=== PATIENT | female | born 1960 | race Caucasian/White ===

== ENCOUNTER → 2022-04-02 | Outpatient (CLI) | payer BC ==
[2022-04-02 15:14] LABS: Chol/HDL Ratio 2.65 Ratio; LDL Cholesterol,Calculated 82.2 mg/dL (0.0-131.0)
[2022-04-02 15:29] LABS: Basophils # (A) 0.11 X 10*3/uL (0.00-0.10); Basophils % (A) 1.7 %; Eosinophils # (A) 0.84 X 10*3/uL (0.04-0.35); Eosinophils % (A) 12.7 %; HCT 45.6 % (37.2-46.3); Immature Grans, Automated 0.5 %; Lymphocytes # (A) 1.68 X 10*3/uL (0.90-5.00); Lymphocytes % (A) 25.5 %; MCH 31.3 pg (27.0-32.0); MCHC 32.9 g/dL (32.0-37.0); MCV 95.2 fL (80.0-97.0); Mean Platelet Volume 11.2 fL (9.5-12.2); Monocytes # (A) 0.53 X 10*3/uL (0.20-1.00); NRBC Per 100 WBC 0 /100 WBCS (0.0-0.0); Neutrophils # (A) 3.41 X 10*3/uL (1.80-7.70); Neutrophils % (A) 51.6 %; Platelet Count 280 X 10*3/uL (140-440); RBC 4.79 X 10*6/uL (4.10-5.20); RDW 12.3 % (11.5-14.5)
[2022-04-02 16:16] LABS: Erythrocyte Sedimentation Rate 8 mm/Hr (0-30)
[2022-04-02 18:15] LABS: ALT 45 U/L (8-44); AST 38 U/L (13-35); African American GFR (CKD) 84.2 (60.0-200.0); Albumin 4.3 g/dL (3.8-4.9); Albumin/Globulin Ratio 1.54 (1.60-3.17); Alkaline Phosphatase 68 U/L (41-126); BUN/Creat Ratio 12.15 Ratio (12.00-20.00); Blood Urea Nitrogen 10.3 mg/dL (9.0-27.0); C Reactive Protein <0.30 mg/dL (0.00-0.80); Calcium 9.2 mg/dL (8.7-10.3); Carbon Dioxide 22.7 mmol/L (20.0-27.5); Chloride 103 mmol/L (96-109); Creatine Kinase 57 U/L (26-186); Globulin 2.8 g/dL (1.6-3.3); Glucose 81 mg/dL (70-110); Magnesium 2.1 mg/dL (1.5-2.4); Non-African American GFR(CKD) 72.6 (60.0-200.0); Phosphorus 3.8 mg/dL (2.4-5.1); Potassium 4.4 mmol/L (3.5-5.5); Sodium 139 mmol/L (135-145); Total Protein 7.1 g/dL (6.2-8.2)
== END | disposition home or self-care (01) ==
LOC: LABWHC1 10:25
PROVIDERS: ATTEND Internal Medicine
DX: Z00.00 Encounter for general adult medical examination without abnormal findings (principal); E55.9 Vitamin D deficiency, unspecified; D64.9 Anemia, unspecified; I10 Essential (primary) hypertension; E87.8 Other disorders of electrolyte and fluid balance, not elsewhere classified; E78.5 Hyperlipidemia, unspecified
CPT/HCPCS: 36415; 80053; 80061; 82306; 82550; 83735; 84100; 84443; 85025; 85652; 86140

== ENCOUNTER → 2023-05-26 | Outpatient (CLI) | payer MEDICARE ==
[2023-05-26 18:40] LABS: Basophils # (A) 0.09 X 10*3/uL (0.00-0.10); Basophils % (A) 1.2 %; Eosinophils # (A) 0.58 X 10*3/uL (0.04-0.35); Eosinophils % (A) 7.5 %; HCT 43.4 % (37.2-46.3); HGB 14.4 g/dL (12.0-15.0); Lymphocytes # (A) 1.78 X 10*3/uL (0.90-5.00); MCH 30.5 pg (27.0-32.0); MCHC 33.2 g/dL (32.0-37.0); MCV 91.9 FL (80.0-97.0); Mean Platelet Volume 11.2 FL (9.5-12.2); Monocytes # (A) 0.66 X 10*3/uL (0.20-1.00); Monocytes % (A) 8.5 %; NRBC Per 100 WBC 0 X 10*3/uL (0.00-0.01); Neutrophils # (A) 4.61 X 10*3/uL (1.80-7.70); Neutrophils % (A) 59.5 %; Platelet Count 301 X 10*3/uL (140-440); RBC 4.72 X 10*6/uL (4.10-5.20); RDW 11.9 % (11.5-14.5); WBC 7.74 X 10*3/uL (4.50-10.00)
[2023-05-26 18:46] LABS: Appearance,Urine Clear (Clear); Bilirubin,Urine Negative (Negative); Blood,Urine Negative (Negative); Color,Urine Yellow (Yellow); Ketones,Urine Negative (Negative); Nitrite,Urine Negative (Negative); Specific Gravity,Urine 1.009 (1.001-1.030); Urobilinogen,Urine 0.2 E.U./DL
[2023-05-26 19:06] LABS: Bacteria,Urine Trace
[2023-05-26 19:16] LABS: ALT 25 U/L (8-44); AST 25 U/L (13-35); Albumin 4.5 g/dL (3.8-4.9); Albumin/Globulin Ratio 1.73 Ratio (1.60-3.17); Alkaline Phosphatase 77 U/L (41-126); BUN/Creat Ratio 12.22 Ratio (12.00-20.00); C Reactive Protein <0.30 mg/dL (0.00-0.80); Calcium 9.9 mg/dL (8.7-10.3); Carbon Dioxide 26.6 mmol/L (21.6-31.8); Chloride 100 mmol/L (96-109); Chol/HDL Ratio 2.62 Ratio; Creatine Kinase 58 U/L (26-186); Globulin 2.6 g/dL (1.6-3.3); Glucose 90 mg/dL (70-110); LDL Cholesterol,Calculated 82.9 mg/dL (0.0-131.0); Magnesium 2.1 mg/dL (1.5-2.4); Phosphorus 3.1 mg/dL (2.4-5.1); Potassium 4.6 mmol/L (3.5-5.5); Sodium 138 mmol/L (135-145); Total Bilirubin 0.5 mg/dL (0.3-1.2); Total Protein 7.1 g/dL (6.2-8.2); Uric Acid 3.6 mg/dL (2.9-7.7); VLDL Calculation 14.16 mg/dL (5.00-40.00)
[2023-05-26 19:33] LABS: Erythrocyte Sedimentation Rate 7 mm/Hr (0-30)
== END | disposition home or self-care (01) ==
LOC: LABWHC1 11:35
PROVIDERS: ATTEND Internal Medicine
DX: I10 Essential (primary) hypertension (principal); E55.9 Vitamin D deficiency, unspecified; E78.5 Hyperlipidemia, unspecified; N39.0 Urinary tract infection, site not specified; D64.9 Anemia, unspecified
CPT/HCPCS: 36415; 80053; 80061; 81001; 82306; 82550; 83735; 84100; 84443; 84550; 85025; 85652; 86140

== ENCOUNTER → 2023-06-11 | Outpatient (CLI) | payer MEDICARE ==
[2023-06-11 14:26] LABS: African American GFR (CKD) >90 (>60 ml/min/1.73 sqM); Blood Urea Nitrogen 17 mg/dL (7-17); Non-African American GFR(CKD) 81 (>60 ml/min/1.73 sqM)
--- NOTE | 2023-06-11 15:54 | CT ---
EXAMINATION TYPE: CT chest w con DATE OF EXAM: 06/11/2023 COMPARISON: None available. HISTORY: Abnormal EKG. CT DLP: 417 mGycm Automated exposure control for dose reduction was used. TECHNIQUE: CT scan of the chest is performed with IV Contrast, patient injected with 100 mL of Isovue 300. MIP Images are created on CT scanner and reviewed. 3D reconstructed images are created on an independent workstation and reviewed. FINDINGS: Mediastinum and Leonora: There is no axillary, mediastinal or hilar lymphadenopathy. Pleural and Pericardial spaces: There are no pleural or pericardial effusions. Upper Abdomen: Subcentimeter hypodensities in the left lobe of liver too small fully characterize. Th ere is a small sliding hiatal hernia. The visualized upper abdomen otherwise appears unremarkable. Cardiovascular: The thoracic aorta is normal in size without evidence of aneurysm or dissection. Pulmonary Artery: There are no central pulmonary arterial abnormalities. The examination was not per formed to evaluate for pulmonary embolism. Lung Parenchyma and Airways: There are couple calcified granulomas seen within the right lung. The meño ngs otherwise appear clear. Bones: No fracture or aggressive osseous lesion. IMPRESSION: 1. No acute abnormality in the chest. 2. Small hiatal hernia.
--- NOTE | 2023-06-12 10:56 | CA ---
Transthoracic Echo Report Name: Romina Horton Age: 63 Gender: F : 1960 Exam Date: 06/11/2023 15:12 Exam Location: [facility] Ht (in): 64 Wt (lb): 160 Ordering Physician: Lake Blanco MD Attending/Referring Phys: Lake Blanco MD Pit Recorder Jena Ladd RDCS Procedure CPT: Indications: R94.31 ABNORMAL ELECTROCARDIOGRAM [ECG] [EK I25.10 Cardiac Hx: Technical Quality: Good Contrast 1: Total Dose (mL): Contrast 2: Total Dose (mL): MEASUREMENTS (Male / Female) Normal Values 2D ECHO LV Diastolic Diameter PLAX 4.8 cm 4.2 - 5.9 / 3.9 - 5.3 cm LV Systolic Diameter PLAX 3.1 cm IVS Diastolic Thickness 0.9 cm 0.6 - 1.0 / 0.6 - 0.9 cm LVPW Diastolic Thickness 0.9 cm 0.6 - 1.0 / 0.6 - 0.9 cm LV Relative Wall Thickness 0.4 RV Internal Dim ED PLAX 2.9 cm LVOT Diameter 2.2 cm Aortic Root Diameter 2.8 cm LV Diastolic Volume MOD 4C 75.9 cm??? LV Systolic Volume MOD 4C 30.4 cm??? LV Ejection Fraction MOD 4C 59.9 % LV Diastolic Length 4C 8.3 cm LV Systolic Length 4C 6.7 cm LV Diastolic Volume MOD 2C 84.5 cm??? LV Systolic Volume MOD 2C 33.2 cm??? LV Ejection Fraction MOD 2C 60.8 % LV Diastolic Length 2C 7.6 cm LV Systolic Length 2C 6.4 cm Ascending Aorta Diameter 3.2 cm DOPPLER LVOT Peak Velocity 112.1 cm/s LVOT Peak Gradient 5.0 mmHg LVOT Velocity Time Integral 20.7 cm LVOT Stroke Volume 77.6 cm??? LVOT Stroke Volume Index 43.6 ml/m??? Mitral E Point Velocity 79.4 cm/s Mitral A Point Velocity 47.6 cm/s Mitral E to A Ratio 1.7 MV Deceleration Time 145.8 ms MV E' Velocity 8.4 cm/s Mitral E to MV E' Ratio 9.4 TR Peak Velocity 195.7 cm/s TR Peak Gradient 15.3 mmHg Right Ventricular Systolic Press 20.4 mmHg PV Peak Velocity 85.3 cm/s PV Peak Gradient 2.9 mmHg FINDINGS Left Ventricle Left ventricular ejection fraction is estimated at 60-65 %. Left ventricular cavity size normal. Left ventricular wall thickness normal. Normal left ventricular wall motion. Right Ventricle Normal right ventricular size. Right ventricular systolic pressure within normal limits. Right Atrium Normal right atrial size. Left Atrium Normal left atrial size. Mitral Valve Structurally normal mitral valve. No mitral stenosis, regurgitation or prolapse. Aortic Valve Trileaflet aortic valve. No aortic valve stenosis or regurgitation. Tricuspid Valve Structurally normal tricuspid valve. Mild tricuspid regurgitation. Pulmonic Valve Structurally normal pulmonic valve. No pulmonic regurgitation. Pericardium No pericardial effusion. Aorta Normal size aortic root and proximal ascending aorta. CONCLUSIONS Left ventricular ejection fraction 60-65% No mitral regurgitation Mild tricuspid regurgitation No pericardial effusion Previewed by: Dr. Irvnig Wiggins DO (Electronically Signed) Final Date: 12 June 2023 10:55
== END | disposition home or self-care (01) ==
LOC: RADCTMAIN 13:34
PROVIDERS: ATTEND Internal Medicine
DX: K44.9 Diaphragmatic hernia without obstruction or gangrene (principal); I36.1 Nonrheumatic tricuspid (valve) insufficiency; I25.10 Atherosclerotic heart disease of native coronary artery without angina pectoris; R94.31 Abnormal electrocardiogram [ECG] [EKG]; R91.1 Solitary pulmonary nodule
CPT/HCPCS: 93306; 82565; 84520; 71260; 36415; Q9967

== ENCOUNTER → 2024-02-04 | Outpatient (CLI) | payer MEDICARE ==
--- NOTE | 2024-02-10 08:28 | MM ---
Reason for Exam: Follow-up at short interval from prior study. Last mammogram was performed 1 year(s) and 1 month(s) ago. Patient History: Menarche at age 11. First Full-Term at age 29. Late child-bearing (after 28). Postmenopausal. Patient has history of breast feeding. 09/09/2008, Cyst Aspiration on the Left side. 09/10/2011, Excisional Biopsy on the Left side. Sister had breast cancer, age 53. Risk Values: Lida 5 year model risk: 3.9%. NCI Lifetime model risk: 14.3%. Prior Study Comparison: 05/05/2018 Bilateral MG 3D screening mammo w/cad, Unknown. 05/13/2019 Bilateral MG 3D screening mammo w/cad, Unknown. 09/28/2020 Bilateral MG 3D screening mammo w/cad, Unknown. 11/23/2021 Bilateral MG 3D screening mammo w/cad, Unknown. 01/09/2023 Bilateral MG 3D screening mammo w/cad, Unknown. 01/20/2023 Bilateral MG 3D screening mammo w/cad, Unknown. Tissue Density: The breasts are heterogeneously dense, which may obscure small masses. Findings: Analyzed By CAD. No evidence for mass or distortion. No suspicious microcalcifications. Overall Assessment: Negative, BI-RAD 1 Management: Screening Mammogram of both breasts in 1 year. . Results were given to the patient verbally at the time of exam. Patient should continue monthly self-breast exams. A clinical breast exam by your physician is recommended on an annual basis. This exam should not preclude additional follow-up of suspicious palpable abnormalities. Note on Lida scores and lifetime risk: 1. A Lida score greater than 3% is considered moderate risk. If this is the case, consider specialist referral to assess eligibility for a risk reducing agent. 2. If overall lifetime risk for the development of breast cancer is 20% or higher, the patient may qualify for future screening with alternating mammogram and breast MRI. [facility], , 02/04/2024 10:23 AM. Electronically signed and approved by: Rodríguez Rogers M.D. Radiologis
== END | disposition home or self-care (01) ==
LOC: RADMAMWWP 09:32
PROVIDERS: ATTEND Internal Medicine
CPT/HCPCS: 77062; 77066

== ENCOUNTER → 2024-05-27 | Outpatient (CLI) | payer MEDICARE ==
[2024-05-27 14:53] LABS: Basophils # (A) 0.08 X 10*3/uL (0.00-0.10); Basophils % (A) 1.2 %; Eosinophils # (A) 0.52 X 10*3/uL (0.04-0.35); Eosinophils % (A) 7.9 %; HCT 42.4 % (37.2-46.3); HGB 14.1 g/dL (12.0-15.0); Lymphocytes # (A) 1.79 X 10*3/uL (0.90-5.00); Lymphocytes % (A) 27.2 %; MCH 30.9 pg (27.0-32.0); MCHC 33.3 g/dL (32.0-37.0); MCV 92.8 FL (80.0-97.0); Mean Platelet Volume 10.8 FL (9.5-12.2); Monocytes # (A) 0.62 X 10*3/uL (0.20-1.00); Monocytes % (A) 9.4 %; NRBC Per 100 WBC 0 X 10*3/uL (0.00-0.01); Neutrophils # (A) 3.54 X 10*3/uL (1.80-7.70); Platelet Count 298 X 10*3/uL (140-440); RBC 4.57 X 10*6/uL (4.10-5.20); RDW 11.9 % (11.5-14.5); WBC 6.57 X 10*3/uL (4.50-10.00)
[2024-05-27 15:16] LABS: Erythrocyte Sedimentation Rate 6 mm/Hr (0-30)
[2024-05-27 19:30] LABS: C Reactive Protein <0.30 mg/dL (0.00-0.80); Chol/HDL Ratio 3.15 Ratio; Creatine Kinase 57 U/L (26-186); LDL Cholesterol,Calculated 108.8 mg/dL (0.0-131.0); VLDL Calculation 17.48 mg/dL (5.00-40.00)
[2024-05-27 19:31] LABS: % Iron Saturation 32.72 (12.00-45.00); ALT 50 U/L (8-44); AST 39 U/L (13-35); Albumin 4.8 g/dL (3.8-4.9); Albumin/Globulin Ratio 1.92 Ratio (1.60-3.17); Alkaline Phosphatase 69 U/L (41-126); BUN/Creat Ratio 16.12 Ratio (12.00-20.00); Blood Urea Nitrogen 12.9 mg/dL (9.0-27.0); Calcium 10.1 mg/dL (8.7-10.3); Carbon Dioxide 26.7 mmol/L (21.6-31.8); Chloride 98 mmol/L (96-109); Globulin 2.5 g/dL (1.6-3.3); Glucose 88 mg/dL (70-110); Iron 125 UG/DL (50-170); Phosphorus 3.3 mg/dL (2.4-5.1); Potassium 4.6 mmol/L (3.5-5.5); Sodium 136 mmol/L (135-145); Total Bilirubin 0.5 mg/dL (0.3-1.2); Total Iron Binding Capacity 382 UG/DL (228-460); Total Protein 7.3 g/dL (6.2-8.2); Uric Acid 3.8 mg/dL (2.9-7.7)
== END | disposition home or self-care (01) ==
LOC: LABWHC1 11:12
PROVIDERS: ATTEND Internal Medicine
DX: Z00.00 Encounter for general adult medical examination without abnormal findings (principal); I10 Essential (primary) hypertension; E78.5 Hyperlipidemia, unspecified; E03.9 Hypothyroidism, unspecified; E55.9 Vitamin D deficiency, unspecified; D64.9 Anemia, unspecified; J44.9 Chronic obstructive pulmonary disease, unspecified; M10.9 Gout, unspecified
CPT/HCPCS: 36415; 80053; 80061; 82306; 82550; 82728; 83540; 83550; 83735; 84100; 84443; 84550; 85025; 85652; 86140